=== PATIENT | male | born 1990 | race Hispanic/Latino ===

== ENCOUNTER 2017-06-29 16:22 | Emergency (ER) | payer BC, SELFPAY ==
--- NOTE | 2017-06-29 18:40 | RAD ---
LEFT HAND THREE VIEWS: 06/29/17 HISTORY: Hand pain. There is a fracture which appears to be an avulsive fracture along the articular surface of the hamat e bone at the level of its articulation with the fifth metacarpal. I do not see any definite signs o f dislocation although the avulsed portion appears to be a moderate portion of the articular surface of the hamate in this region. IMPRESSION: Fracture which is an avulsive type fracture involving the articular surface of the hamate bone where it articulates with the base of the fifth metacarpal. POS: [facility]
== END 2017-06-29 19:54 | disposition home or self-care (01) ==
LOC: ERS 16:22
DX: S62.142A Displaced fracture of body of hamate [unciform] bone, left wrist, initial encounter for closed fracture (principal); V00.131A Fall from skateboard, initial encounter; Y93.51 Activity, roller skating (inline) and skateboarding
CPT/HCPCS: 29125; 99406

== ENCOUNTER 2017-07-05 14:13 | Day surgery (SDC) | payer OTHER, SELFPAY ==
[2017-07-04 13:56] VITALS: BMI 25.0
[2017-07-05] MEDS ORDERED: Dexamethasone 20 MG/5 ML VIAL ONE (16:32)
[2017-07-05] MEDS ORDERED: Ketorolac Tromethamine 30 MG/ML VIAL ONE ×2 (16:32→23:17)
[2017-07-05] MEDS ORDERED: Propofol 200 MG/20 ML VIAL ONE (16:32)
[2017-07-05] MEDS ORDERED: Ondansetron HCl/PF 4 MG/2 ML Vial ONE (16:32)
[2017-07-05] MEDS ORDERED: Bupivacaine 0.5% 10 ML VIAL ONE (20:50)
[2017-07-05] MEDS ORDERED: Bacitracin Zinc Ointment 30 gm TUBE ONE (20:50)
[2017-07-05] MEDS ORDERED: Sodium Chloride 0.9% 0 ML ONE (20:51)
[2017-07-05] MEDS ORDERED: Fentanyl 100 MCG/2 ML VIAL ONE ×3 (21:40→23:29)
--- NOTE | 2017-07-05 22:46 | RAD ---
INTRAOPERATIVE FLUOROSCOPIC VIEWS LEFT HAND TWO VIEWS PROVIDED 07/05/17 CLINICAL HISTORY: Intraoperative pinning. FINDINGS: There are several K-wires traversing the base of the left hand and left carpus with imaging performed during operative procedure. IMPRESSION: Intraoperative imaging for surgical pinning of the left hand/wrist. POS: [facility]
--- NOTE | 2017-07-06 07:37 | OP ---
DATE OF SURGERY: 07/05/2017 PREOPERATIVE DIAGNOSES: 1. Dislocation of fourth and fifth carpometacarpal joint, left. 2. Hamate avulsion fracture, left. FINDINGS: Fourth and fifth carpometacarpal joint, , reduced and after close attempts and the ricardo mate fracture cannot be reduced at all via close attempts, so open treatment was indicated. PROCEDURES PERFORMED: 1. Open reduction and internal fixation, fourth carpometacarpal joint dislocation. 2. Open reduction and internal fixation with K-wires, fifth carpometacarpal joint dislocation. 3. Open reduction and internal fixation, hamate dorsal avulsion fracture. ESTIMATED BLOOD LOSS: 10 mL TOURNIQUET TIME: 24 minutes. FINDINGS: A 1 cm long, but only 3 mm thick dorsal hamate avulsion fracture and fourth and fifth carp ometacarpal joint dislocation with no intra-articular fragments seen. Joint was debrided. C-ARM USE: Yes. (Documented throughout the entire time so please add [id number] with 26 modifier). DESCRIPTION FOR PROCEDURES: After successful general LMA technique, the limb was prepped and draped. The patient then had the tourniquet. C-arm brought to the field, attempt closed reduction x2 inclu ding the pinning of the fifth metacarpal, but even with the fifth metacarpal pin, the avulsion fractu re was not moving and was still prominent with step-offs, so we felt that open treatment is indicated . We abandoned closed treatment, exsanguinated the limb and inflated the tourniquet to 250 mmHg pres sure. Then, we made a zigzag incision centered over the central portion of the hamate on the intersp nir in a fourth and fifth carpometacarpal joint, identified the joint with a curvilinear incision and inspected the joint. We irrigated, reduced the fourth and fifth carpometacarpal joint and pinned it , but the hamate fracture was still displaced, so we removed the hematoma from the hamate avulsion fr acture that was 1 cm long, but only 3 mm thick at its thickest, and approximately 6 mm in height. We made it anatomic, reduced it, and then placed cross K-wires, one 0.45 and one 0.35, to help leave it reduced. At this point, we will leave the K-wires. There was only motion of the entire hamate and not the fracture. The wires were found to be not protruding; volar ends were cut flush with the bone . We then cut the wires, holding the fourth and fifth carpometacarpal joint, which showed on AP, lat eral, and Bora views that there was no compressibility and the fracture was anatomic. The capsule was closed with a running 2-0 Vicryl undyed, 2-0 Vicryl used to repair the periosteum as well and the intermetacarpal ligament. Then, we deflated tourniquet, obtained hemostasis, closed sub cutaneous tissue with running 4-0 Vicryl, and the skin with interrupted 4-0 nylon simple pattern. We injected the patient with 20 mL 0.5% Marcaine, epinephrine, placed a bulky dressing and a ulna r gutter splint. He left the operating room without complications.
== END 2017-07-06 00:16 | disposition home or self-care (01) ==
LOC: SDC 14:13
PROVIDERS: ATTEND Orthopaedic Surgery Hand Surgery
PROC: 0PSQ04Z Reposition Left Metacarpal with Internal Fixation Device, Open Approach (ICD-10-PCS; principal; 2017-07-06)
PROC: 0PSN04Z Reposition Left Carpal with Internal Fixation Device, Open Approach (ICD-10-PCS; principal; 2017-07-06)
DX: S62.305A Unspecified fracture of fourth metacarpal bone, left hand, initial encounter for closed fracture (principal); S62.307A Unspecified fracture of fifth metacarpal bone, left hand, initial encounter for closed fracture; S62.142A Displaced fracture of body of hamate [unciform] bone, left wrist, initial encounter for closed fracture; Z98.890 Other specified postprocedural states
CPT/HCPCS: 76001; 96374; A4216; J1100; J1885; J2405; J2704; J3010; J3490